=== PATIENT | male | born 1995 | race Caucasian/White ===

== ENCOUNTER 2021-07-02 10:45 | Emergency (ER) | payer BC ==
[2021-07-02] MEDS ORDERED: ACETAMINOPHEN 500 MG TAB ONE (11:35)
[2021-07-02] MEDS ORDERED: IBUPROFEN 200 MG TAB PO ONE (11:35)
--- NOTE | 2021-07-02 12:43 | EDPHYS ---
Physician Documentation [facility] Name: Raheel Zaragoza Age: 25 yrs Sex: Male : 1995 Arrival Date: 07/02/2021 Time: 10:48 Bed Waiting Private MD: YOON Physician Jason Mejia HPI: 07/02 11:24 This 25 yrs old Male presents to ER via Ambulatory with complaints of Fever. kb 11:24 The patient or guardian reports flu symptoms, low-grade fever, myalgias. Onset: The kb symptoms/episode began/occurred yesterday. Severity of symptoms: At their worst the symptoms were moderate, in the emergency department the symptoms are unchanged. Modifying factors: The symptoms are alleviated by nothing, the symptoms are aggravated by nothing. Associated signs and symptoms: Pertinent positives: fever, sore throat, Pertinent negatives: chest pain, diarrhea, ear ache, nausea, rhinorrhea, vomiting. The patient has not experienced similar symptoms in the past. The patient has not recently seen a physician. Pt reports fever, bodyaches, chills and sore throat that started yesterday morning. Historical: - Allergies: 11:08 No Known Allergies; ll1 - PMHx: 11:08 None; ll1 - PSHx: 11:08 None; ll1 - Immunization history:: Client reports having NOT received the Covid vaccine. - Social history:: Smoking status: Patient denies any tobacco usage or history of. ROS: 12:42 Abdomen/GI: Negative for abdominal pain, nausea, vomiting, diarrhea, and constipation. kb 12:42 Constitutional: Positive for body aches, chills, fever, malaise. 12:42 ENT: Positive for sore throat. 12:42 All other systems are negative. Exam: 12:42 Constitutional: This is a well developed, well nourished patient who is awake, alert, kb and in no acute distress. Head/Face: Normocephalic, atraumatic. ENT: Moist Mucous membranes Cardiovascular: Regular rate and rhythm with a normal S1 and S2. No gallops, murmurs, or rubs. No pulse deficits. Respiratory: Respirations even and unlabored. No increased work of breathing, no retractions or nasal flaring. Skin: Warm, dry with normal turgor. Normal color. MS/ Extremity: Pulses equal, no cyanosis. Neurovascular intact. Full, normal range of motion. Neuro: Awake and alert, GCS 15, oriented to person, place, time, and situation. Moves all extremities. Normal gait. Psych: Awake, alert, with orientation to person, place and time. Behavior, mood, and affect are within normal limits. Vital Signs: 11:06 BP 139 / 84; Pulse 103; Resp 18; Temp 103.0; Pulse Ox 98% ; Weight 81.65 kg; Height 5 ll1 ft. 10 in. (177.80 cm); Pain 12/05; 13:00 Temp 99.2(TE); ss 11:06 Body Mass Index 25.83 (81.65 kg, 177.80 cm) ll1 MDM: 11:10 Patient medically screened. kb 12:42 Data reviewed: vital signs, nurses notes. Data interpreted: Pulse oximetry: on room air kb is 98 %. Interpretation: normal. Counseling: I had a detailed discussion with the patient and/or guardian regarding: the historical points, exam findings, and any diagnostic results supporting the discharge/admit diagnosis, lab results, the need for outpatient follow up, a family practitioner, to return to the emergency department if symptoms worsen or persist or if there are any questions or concerns that arise at home. 07/02 11:11 Order name: Strep; Complete Time: 12:02 kb 07/02 12:03 Order name: Throat Culture EDMS 07/02 12:42 Order name: SARS-COV-2 RT PCR; Complete Time: 12:43 EDMS Administered Medications: 11:15 Drug: Tylenol 1000 mg Route: PO; ll1 13:02 Follow up: Response: No adverse reaction; Temperature is decreased ss 11:15 Drug: Ibuprofen 200 mg Route: PO; ll1 13:01 Follow up: Response: No adverse reaction; Temperature is decreased ss Disposition: 07/03 08:12 Co-signature as Attending Physician, Jason Mejia MD I agree with the assessment and sushant plan of care. Disposition Summary: 07/02/21 12:43 Discharge Ordered Location: Home kb Condition: Stable kb Diagnosis - Coronavirus infection, unspecified kb Discharge Instructions: - Discharge Summary Sheet kb - Viral Respiratory Infection, [id number] kb - COVID-19 kb - COVID-19 Frequently Asked Questions kb - 10 Things You Can Do to Manage Your COVID-19 Symptoms at Home - [facility] kb Forms: - Medication Reconciliation Form kb - Thank You Letter kb - Antibiotic Education kb - Prescription Opioid Use kb Signatures: Dispatcher [employer] EDMS Mary Morton FNP-C FNP-Jason Sims MD MD cha Lewis, Lynsay, RN RN ll1 Layne Bain RN ss Corrections: (The following items were deleted from the chart) 07/02 11:33 11:11 CORONAVIRUS+MR.LAB.NEHALZ ordered. EDUT EDMS
--- NOTE | 2021-07-02 12:43 | ER ---
Nurse's Notes [facility] Name: Raheel Zaragoza Age: 25 yrs Sex: Male : 1995 Arrival Date: 07/02/2021 Time: 10:48 Bed Waiting Private MD: Diagnosis: Coronavirus infection, unspecified Presentation: 07/02 11:06 Chief complaint: Patient states: Fever (102), body aches, sore throat for 2 days. Room ll1 mate is sick with cough and fever. Coronavirus screen: Vaccine status: Patient reports being unvaccinated. Client denies travel out of the [place] in the last 14 days. chills, congestion, fatigue, fever, headache, muscle pain, shaking with chills, sore throat, Client presents with at least one sign or symptom that may indicate coronavirus-19. Standard/surgical mask placed on the client. Ebola Screen: Patient denies travel to an Ebola-affected area in the 21 days before illness onset. Initial Sepsis Screen: Does the patient meet any 2 criteria? Temp <36.0*C (96.8*F)) or > 38.3*C (100.9*F). HR > 90 bpm. No. Patient's initial sepsis screen is negative. Does the patient have a suspected source of infection? Yes: Other: sore throat. Risk Assessment: Do you want to hurt yourself or someone else? Patient reports no desire to harm self or others. Onset of symptoms was July 01, 2021. 11:06 Method Of Arrival: Ambulatory [facility] 11:06 Acuity: JAMES 4 1 Historical: - Allergies: 11:08 No Known Allergies; ll1 - PMHx: 11:08 None; ll1 - PSHx: 11:08 None; ll1 - Immunization history:: Client reports having NOT received the Covid vaccine. - Social history:: Smoking status: Patient denies any tobacco usage or history of. Screenin:00 Abuse screen: Denies threats or abuse. Denies injuries from another. Nutritional ss screening: No deficits noted. Tuberculosis screening: Never had TB. Fall Risk None identified. Assessment: 13:00 General: Appears in no apparent distress. comfortable, Behavior is calm, cooperative. ss General: Reports fever for. Neuro: Level of Consciousness is awake, alert, obeys commands. Respiratory: Airway is patent Respiratory effort is even, unlabored, Respiratory pattern is regular, symmetrical. Derm: Skin is pink, warm \T\ dry. normal. Vital Signs: 11:06 BP 139 / 84; Pulse 103; Resp 18; Temp 103.0; Pulse Ox 98% ; Weight 81.65 kg; Height 5 ll1 ft. 10 in. (177.80 cm); Pain 2/10; 13:00 Temp 99.2(TE); ss 11:06 Body Mass Index 25.83 (81.65 kg, 177.80 cm) 1 ED Course: 10:48 Patient arrived in ED. ds1 10:51 Mary Morton FNP-C [facility]. kb 10:51 Jason Mejia MD is Attending Physician. kb 11:08 Triage completed. ll1 11:08 Arm band placed on. 1 11:15 Strep Sent. 1 13:00 Layne Bain, KOJO is Primary Nurse. ss 13:00 Patient has correct armband on for positive identification. Bed in low position. Call ss light in reach. 13:00 No provider procedures requiring assistance completed. Patient did not have IV access ss during this emergency room visit. Administered Medications: 11:15 Drug: Tylenol 1000 mg Route: PO; [facility] 13:02 Follow up: Response: No adverse reaction; Temperature is decreased ss 11:15 Drug: Ibuprofen 200 mg Route: PO; 1 13:01 Follow up: Response: No adverse reaction; Temperature is decreased Outcome: 12:43 Discharge ordered by MD. kb 13:00 Discharged to home ambulatory. 13:00 Condition: good 13:00 Discharge instructions given to patient, Instructed on discharge instructions, follow up and referral plans. Demonstrated understanding of instructions, follow-up care. 13:02 Patient left the ED. ss Signatures: Mary Morton FNP-C FNP-Ckb Sanford, Demi ds1 Layne Bain RN RN Carmen Bey RN RN [facility] Corrections: (The following items were deleted from the chart) 11:33 11:15 CORONAVIRUS+ drawn and sent. 1 EDMS
[2021-07-02 13:09] VITALS: BP 139/84; O2SAT 98
[2021-07-02 13:10] VITALS: TEMP 99.2
== END 2021-07-02 13:02 | disposition home or self-care (01) ==
LOC: ER 10:45
DX: U07.1 COVID-19 (principal)
CPT/HCPCS: 87070; 87081; 99283; U0003